=== PATIENT | female | born 1930 | race African-American/Black ===

== ENCOUNTER 2016-11-19 14:26 | Emergency (ER) | payer MEDICARE, BC ==
[~2016-11-19 14:26] MED LIST: TENECTEPLASE INJ 50 MG KIT IV ONE
[2016-11-19] MEDS ORDERED: CALCIUM GLUCONATE 1000 MG/10 ML INJ IV ONE (14:36)
[2016-11-19] MEDS ORDERED: NOREPINEPHRINE BITARTRATE INJ/PF 4 MG/4 ML SDV IV ONE (14:54)
[2016-11-19] MEDS ORDERED: ASPIRIN 300 MG SUPP, RECTAL PR ONE (15:10)
--- NOTE | 2016-11-19 15:10 | ER Document Report ---
[id number] CARDIAC ARREST Notes: Patient seen immediately on arrival by EMS. Patient is an 85-year-old female, past medical history hypertension, presents by EMS after she began to develop chest pain. EMS arrived and she was found to be in sinus bradycardia at 30. She was started on dopamine and pacing was started, but she lost pulses. She went into PEA. 4 Epi's, 2 atropines and a dopamine drip was started after the patient was intubated. CPR was ongoing when patient arrived in the ER and she was in PEA. TRAVEL OUTSIDE OF THE [place] IN LAST 30 DAYS: No - Related Data Allergies/Adverse Reactions: tetracycline [Tetracycline] Allergy (Severe, Verified 07/01/13 22:52) Anaphylaxis Past Medical History - General Information source: Relative - Daughter, Emergency Med Personnel - Social History Smoking Status: Unknown if Ever Smoked Family History: Reviewed & Not Pertinent, DM - Past Medical History Cardiac Medical History: Reports: Hx Coronary Artery Disease, Hx Hypercholesterolemia, Hx Hypertension, Hx Heart Murmur Pulmonary Medical History: Reports: Hx COPD, Hx Pneumonia Denies: Hx Tuberculosis Neurological Medical History: Reports: Hx Cerebrovascular Accident Endocrine Medical History: Reports: Hx Diabetes Mellitus Type 2 GI Medical History: Reports: Hx Gastroesophageal Reflux Disease Musculoskeltal Medical History: Reports Hx Arthritis - Rheumatoid Arthritis Psychiatric Medical History: Reports: Hx Depression Past Surgical History: Reports: Hx Herniorrhaphy, Hx Hysterectomy. Denies: Hx Pacemaker - Immunizations Immunizations up to date: Yes Hx Diphtheria, Pertussis, Tetanus Vaccination: Yes Hx Pneumococcal Vaccination: 07/04/12 Review of Systems - Review of Systems -: Yes ROS unobtainable due to patient's medical condition Physical Exam - Vital signs Vitals: Resp 28 H 11/19/16 14:31 - Notes Notes: PHYSICAL EXAMINATION: GENERAL: Unresponsive. HEAD: Atraumatic, normocephalic. EYES: Pupils 4mm to 3mm reactive bilaterally. ENT: Intubated with ETT at 23 cm at the lips. Nares patent, oropharynx clear without exudates. Moist mucous membranes. LUNGS: Artificial respirations. Breath sounds clear to auscultation bilaterally and equal. No wheezes rales or rhonchi. HEART: Tachycardic. Irregular rhythm. ABDOMEN: Soft. EXTREMITIES: No pitting or edema. No cyanosis. NEUROLOGICAL: No response to pain. No purposeful movements. SKIN: Warm, Dry, normal turgor, no rashes or lesions noted. Course - Re-evaluation Re-evalutation: See RN Note for more information. On arrival to the ER, patient is in wide complex, rapid PEA. She was given calcium and bicarbonate with an additional epinephrine and she regained pulses. Access was gained using an IO in the right tibia. An EKG showed evidence of a posterior VT. Called immediately to Dr. Slim Stokes at [facility] hotline and he has accepted the patient at 14:30. Patient lost pulses again and quickly regained them after 1 round of CPR and epinephrine. TNK was given at 1456. Patient became hypoxic down to 50%. A bedside ultrasound showed poor lung sliding on the left and decreased breath sounds. Needle decompression was performed with a 14-gauge Angiocath with relief of her hypoxia. Patient lost pulses again after being started on Levophed drip and another round of CPR was completed with appendectomy. She regained her pulses and was in sinus tachycardia. Aspirin and Lovenox were given per STEMI guidelines. Patient switched from levophed and vasopressin drip to epinephrine drip because she is responding well and her MAPS are staying above 65. A chest tube was placed due to her prior pneumothorax. Updated family members during the code. Pt transported by helicopter. - Vital Signs Vital signs: Temp Pulse Resp BP Pulse Ox 90.7 F L 17 99/83 L 100 11/19/16 16:10 11/19/16 16:09 11/19/16 16:10 11/19/16 16:09 - Laboratory Result Diagrams: 11/19/16 15:05 11/19/16 15:05 Laboratory results interpreted by me: 11/19/16 11/19/16 15:05 15:05 WBC 12.4 H RBC 2.68 L Hgb 8.6 L Hct 27.6 L MCV 103 H MCHC 31.3 L RDW 17.5 H Lymphocytes % (Manual) 53 H Monocytes % (Manual) 2 L Abs Lymphs (Manual) 6.6 H Carbon Dioxide 21 L Glucose 192 H AST 115 H ALT 109 H Total Protein 4.7 L Albumin 2.3 L Procedures - Thoracentesis Left Time completed: 15:40 Consent obtained: No Thoracentesis pre-procedure: Sterile drapes applied Needle size: 16 Thoracentesis location: Left lateral 4th rib space Anesthetic type: 1% Lidocaine mL's of anesthetic: 4 Number of attempts: 1 Ultrasound guided: No Complications: No Critical Care Note - Critical Care Note Total time excluding time spent on procedures (mins): 120 Discharge - Discharge Clinical Impression: Cardiac arrest STEMI (ST elevation myocardial infarction) Qualifiers: Involved coronary artery: unspecified coronary artery Qualified Code(s): I21.3 - ST elevation (STEMI) myocardial infarction of unspecified site Condition: Critical Disposition: [facility] Admitting Provider: Dr. Slim Stokes Referrals: KALYAN DAVIS MD [Primary Care Provider] - Follow up as needed
[2016-11-19] MEDS ORDERED: ENOXAPARIN SODIUM INJ 60 MG/0.6 ML DISP.SYRIN SUBCUT ONE (15:12)
[2016-11-19 15:14] LABS: HEMATOCRIT 27.6 % (36.0-47.0); HEMOGLOBIN 8.6 g/dL (12.0-15.5); HGB HCT DIFFERENCE -1.8; MEAN CORPUSCULAR HEMOGLOBIN 32.2 pg (27.0-33.4); MEAN CORPUSCULAR HGB CONC 31.3 g/dL (32.0-36.0); MEAN CORPUSCULAR VOLUME 103 fl (80-97); RED BLOOD COUNT 2.68 10^6/uL (3.72-5.28); RED CELL DISTRIBUTION WIDTH 17.5 % (11.5-14.0); WHITE BLOOD COUNT 12.4 10^3/uL (4.0-10.5)
[2016-11-19] MEDS ORDERED: EPINEPHRINE INJ 30 MG/30 ML VIAL ONE (15:29)
[2016-11-19 15:34] LABS: ALANINE AMINOTRANSFERASE 109 U/L (9-52); ALBUMIN 2.3 g/dL (3.5-5.0); ALKALINE PHOSPHATASE 57 U/L (38-126); ANION GAP 16 (5-19); ASPARTATE AMINO TRANSFERASE 115 U/L (14-36); BILIRUBIN,TOTAL 0.5 mg/dL (0.2-1.3); BLOOD UREA NITROGEN 10 mg/dL (7-20); CALCIUM 8.7 mg/dL (8.4-10.2); CARBON DIOXIDE 21 mmol/L (22-30); CHLORIDE 107 mmol/L (98-107); CREATINE KINASE 48 U/L (30-135); CREATININE RESULT 0.78 mg/dL (0.52-1.25); GLUCOSE 192 mg/dL (75-110); POTASSIUM 3.6 mmol/L (3.6-5.0); SODIUM 144.2 mmol/L (137-145); TOTAL PROTEIN 4.7 g/dL (6.3-8.2)
[2016-11-19] MEDS ORDERED: EPINEPHRINE INJ/PF 1 MG/1 ML AMPULE ONE (15:36)
[2016-11-19 16:12] LABS: TROPONIN I < 0.012 ng/mL
[2016-11-19 16:15] LABS: BASOPHILS % (MANUAL) 0 % (0-2); EOSINOPHILS % (MANUAL) 1 % (0-6); LYMPHOCYTES % (MANUAL) 53 % (13-45); TOTAL CELLS COUNTED 100
[2016-11-19 16:18] LABS: ANISOCYTOSIS 1+; BURR CELLS 2+; HYPOCHROMASIA SLIGHT; OVALOCYTES 1+; POLYCHROMASIA SLIGHT; ROULEAUX SLIGHT; SCHISTOCYTES 1+; TOXIC GRANULATION 1+
[2016-11-19 16:24] VITALS: BP 99/83
[2016-11-19] MEDS ORDERED: EPINEPHRINE INJ 1 MG/10 ML DISP.SYRIN ONE (20:03)
[2016-11-19] MEDS ORDERED: SODIUM BICARBONATE 8.4% INJ 50 MEQ/50 ML DISP.SYRIN ONE (20:03)
--- NOTE | 2016-11-20 12:38 | EKG REPORT ---
SEVERITY:- ABNORMAL ECG - ATRIAL FIBRILLATION MULTIFORM VENTRICULAR PREMATURE COMPLEXES : Confirmed by: Nathaniel Flynn 20-Nov-2016 12:37:33
--- NOTE | 2016-11-20 12:38 | EKG REPORT ---
SEVERITY:- ABNORMAL ECG - ATRIAL FIBRILLATION PAIRED VENTRICULAR PREMATURE COMPLEXES REPOL ABNRM SUGGESTS ISCHEMIA, DIFFUSE LEADS : Confirmed by: Nathaniel Flynn 20-Nov-2016 12:37:27
--- NOTE | 2016-11-20 12:38 | EKG REPORT ---
SEVERITY:- ABNORMAL ECG - SINUS TACHYCARDIA MULTIPLE VENTRICULAR PREMATURE COMPLEXES PROBABLE ANTEROSEPTAL INFARCT, OLD REPOL ABNRM SUGGESTS ISCHEMIA, DIFFUSE LEADS : Confirmed by: Nathaniel Flynn 20-Nov-2016 12:37:46
--- NOTE | 2016-11-20 12:38 | EKG REPORT ---
SEVERITY:- ABNORMAL ECG - SINUS TACHYCARDIA NONSPECIFIC T ABNORMALITIES, LATERAL LEADS : Confirmed by: Nathaniel Flynn 20-Nov-2016 12:36:59
== END 2016-11-19 16:44 | disposition short-term general hospital (02) ==
LOC: ER 14:26
PROC: 0W9B3ZZ Drainage of Left Pleural Cavity, Percutaneous Approach (ICD-10-PCS; principal; 2016-11-19)
DX: I21.29 ST elevation (STEMI) myocardial infarction involving other sites (principal); I46.9 Cardiac arrest, cause unspecified; J93.9 Pneumothorax, unspecified; I10 Essential (primary) hypertension; E11.9 Type 2 diabetes mellitus without complications; I25.10 Atherosclerotic heart disease of native coronary artery without angina pectoris; J44.9 Chronic obstructive pulmonary disease, unspecified; Z86.73 Personal history of transient ischemic attack (TIA), and cerebral infarction without residual deficits; Z87.892 Personal history of anaphylaxis; Z88.1 Allergy status to other antibiotic agents
CPT/HCPCS: 32554; 36680; 93005; 99291; 99292; 92950; 96372; 51702; 96375; 96365; 96366; 36415; 82553; 82550; 85025; 80053; 84484; 71010; 93010; J3101; J0171; J3490; 94002